=== PATIENT | female | born 1950 | race Caucasian/White ===

== ENCOUNTER 2019-12-16 11:34 | Day surgery (SDC) | payer MEDICARE, OTHER ==
[~2019-12-16 11:34] MED LIST: Lactated Ringers 1,000 ML IV SCH; Sodium Chloride 0.9% 10 ML Syringe FLUSH PRN
[2019-12-16] MEDS ORDERED: Propofol 200 MG/20 ML SDV ONE (12:22)
[2019-12-16] MEDS ORDERED: Midazolam 1 MG/ML 2 ML SDV ONE (12:22)
--- NOTE | 2019-12-16 12:46 | PCM.PN ---
- General Info Date of Service: 12/16/19 - Review of Systems Systems Review Comment:: 69-year-old female with known history of colon polyps here for surveillance colonoscopy. She denies any significant recent change in bowel pattern. Her last colonoscopy was over 5 years ago. Patient also states that her father required surgery for colon cancer at an advanced age. She is medically stable to proceed today. Her recent history and physical is reviewed and no significant changes are noted. I have discussed the proposed colonoscopy with the patient. Risks and possible complications such as but not limited to bleeding and GI injury reviewed. She agrees to proceed. - Patient Data Vitals - Most Recent: Last Vital Signs Temp 98.1 F 12/16/19 11:30 Pulse 86 12/16/19 11:30 Resp 16 12/16/19 11:30 BP 156/73 H 12/16/19 11:30 Pulse Ox 97 12/16/19 11:30 Weight - Most Recent: 61.235 kg Med Orders - Current: Current Medications Lactated Ringer's (Ringers, Lactated) 1,000 mls @ 50 mls/hr IV ASDIRECTED [facility] Last Admin: 12/16/19 12:05 Dose: 50 mls/hr Sodium Chloride (Saline Flush) 10 ml FLUSH Q8HR PRN PRN Reason: keep vein open Sepsis Event Note - Focused Exam Vital Signs: Vital Signs Temp Pulse Resp BP Pulse Ox 12/16/19 11:30 98.1 F 86 16 156/73 H 97 Date Exam was Performed: 12/16/19 Time Exam was Performed: 12:44 - Problem List Review Problem List Initiated/Reviewed/Updated: Yes - My Orders Last 24 Hours: My Active Orders 12/15/19 14:49 Resuscitation Status Routine 12/16/19 11:30 Peripheral IV Care [RC] . DIRECTED Vital Signs [RC] PER UNIT ROUTINE Lactated Ringers [Ringers, Lactated] 1,000 ml IV ASDIRECTED Sodium Chloride 0.9% [Saline Flush] 10 ml FLUSH Q8HR PRN Peripheral IV Insertion Adult [OM.PC] Routine 12/16/19 12:00 Patient to Empty Bladder [RC] ASDIRECTED 12/16/19 12:45 Verify Patient Consent Obtain [RC] ASDIRECTED 12/16/19 Breakfast Nothing Per Oral Diet [DIET] - Assessment Assessment:: Personal history of colon polyps Family history of colon cancer - Plan Plan:: Colonoscopy
[2019-12-16] MEDS ORDERED: Propofol 200 MG/20 ML SDV IV ONE (13:22)
[2019-12-16] MEDS ORDERED: Midazolam 1 MG/ML 2 ML SDV IV ONE (13:22)
--- NOTE | 2019-12-16 13:58 | PCM.OPNOTE ---
- General Post-Op/Procedure Note Date of Surgery/Procedure: 12/16/19 Operative Procedure(s): Colonoscopy with polypectomy Findings: Small hepatic flexure polyp Mild left colon diverticulosis Moderate sized hemorrhoids Pre Op Diagnosis: History of colon polyps Post-Op Diagnosis: Colon Polyp. Left Colon Diverticulosis. Hemorrhoids Anesthesia Technique: MAC Primary Surgeon: Bryn Jim Pathology: Colon Polyp EBL in mLs: 0 Complications: None Condition: Good
--- NOTE | 2019-12-16 20:38 | OR ---
DATE OF SURGERY: 12/16/2019 SURGEON: Bryn Jim MD PREOPERATIVE DIAGNOSIS: History of colon polyps and family history of colon cancer. POSTOPERATIVE DIAGNOSIS: Colon polyp, left colon diverticulosis, hemorrhoids. OPERATION PERFORMED: Colonoscopy with polypectomy. INDICATIONS FOR SURGERY: A 69-year-old female who comes today for surveillance colonoscopy. She has a history of colon polyps. She also notes that her father has a history of colon cancer. FINDINGS: A single small polyp was noted on today's exam. This is at the hepatic flexure. It is 5 mm in size and sessile in configuration. The patient also has a mild degree of diverticulosis in the left colon with multiple scattered small diverticula. The remainder of the colon appears normal. The patient does have moderate-sized internal and external hemorrhoids. DESCRIPTION OF PROCEDURE: The patient was taken to the operating room. She was given intravenous sedation and with her in the left lateral decubitus position, digital rectal exam was performed showing no rectal masses. The Olympus colonoscope was inserted into the rectum. Retroflexed examination of the rectal canal was performed. The scope was then carefully advanced under direct visualization through the entire length of the colon until cecum is reached. Cecal acquisition is confirmed by noting the normal internal cecal anatomy including the appendiceal orifice and ileocecal valve. The light was also noted to transilluminate the abdominal wall in the right lower quadrant. After examining the cecum, the scope was slowly withdrawn sequentially re-examining the colonic segments. At the level of the hepatic flexure, the above-described polyp was identified. This was removed grossly in its entirety with multiple bites of the biopsy forceps. The examination was then continued and after the entire colon and rectum had been fully examined and with no sign of any complication, the scope was removed and the patient was taken from the operating room in satisfactory condition. ESTIMATED BLOOD LOSS: Zero. COMPLICATIONS: None. PROGNOSIS: Good. /[id number]/MODL
== END 2019-12-16 14:50 | disposition home or self-care (01) ==
LOC: KA.SDS 11:34
PROVIDERS: ATTEND Surgery
DX: Z12.11 Encounter for screening for malignant neoplasm of colon (principal); D12.3 Benign neoplasm of transverse colon; K57.30 Diverticulosis of large intestine without perforation or abscess without bleeding; K64.8 Other hemorrhoids; K64.4 Residual hemorrhoidal skin tags; I10 Essential (primary) hypertension; E78.5 Hyperlipidemia, unspecified; R05 Cough; E87.6 Hypokalemia; Z88.1 Allergy status to other antibiotic agents; Z88.8 Allergy status to other drugs, medicaments and biological substances; Z80.0 Family history of malignant neoplasm of digestive organs; Z86.018 Personal history of other benign neoplasm; Z79.899 Other long term (current) drug therapy; Z98.890 Other specified postprocedural states
CPT/HCPCS: 00811; 45380; 88305; J2250; J2704; J7120

== ENCOUNTER 2019-12-19 14:41 | Emergency (ER) | payer MEDICARE, OTHER ==
--- NOTE | 2019-12-19 15:07 | EDM.PDOC ---
ED HPI GENERAL MEDICAL PROBLEM - General Stated Complaint: SORE THROAT Time Seen by Provider: 12/19/19 14:46 Source of Information: Reports: Patient History Limitations: Reports: No Limitations - History of Present Illness INITIAL COMMENTS - FREE TEXT/NARRATIVE: Patient presents with sore throat that started abruptly today. Pain is on the left and radiates up to the left ear. It hurts to swallow. She denies fever, cough, sinus pressure, runny nose or sneezing. - Related Data Allergies Allergy/AdvReac Type Severity Reaction Status Date / Time amoxicillin Allergy Rash Verified 12/19/19 15:04 aspirin Allergy Rash Verified 12/19/19 15:04 azithromycin [From Zithromax] Allergy Rash Verified 12/19/19 15:04 levofloxacin [From Levaquin] Allergy Other Verified 12/19/19 15:04 oseltamivir [From Tamiflu] Allergy Rash Verified 12/19/19 15:04 Home Meds: Home Meds Glucosamine/D3/Boswellia Samra [Osteo Bi-Flex Tablet] 1 tab PO DAILY 12/15/19 [ History] Hydrocortisone Acetate 25 mg RC BID 12/15/19 [History] Krill Oil 500 mg PO DAILY 12/15/19 [History] Loratadine 10 mg PO DAILY 12/15/19 [History] Multivitamin [Daily Hubert] 1 tab PO DAILY 12/15/19 [History] Potassium Chloride 10 meq PO DAILY 12/15/19 [History] Vitamin B Complex 1 cap PO DAILY 12/15/19 [History] hydroCHLOROthiazide [Hydrochlorothiazide] 12.5 mg PO DAILY 12/15/19 [History] Naproxen Sodium [Aleve] 220 mg PO BID PRN 12/19/19 [History] Past Medical History HEENT History: Reports: None Cardiovascular History: Reports: Hypertension Gastrointestinal History: Reports: Colon Polyp, Hemorrhoids Genitourinary History: Reports: UTI, 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: Fibroids, Musculoskeletal History: Reports: None Endocrine/Metabolic History: Reports: None Hematologic History: Reports: Anesthesia Reaction - Infectious Disease History Infectious Disease History: Reports: Influenza - Past Surgical History HEENT Surgical History: Reports: Naso-Sinus Surgery, Tonsillectomy Cardiovascular Surgical History: Reports: None GI Surgical History: Reports: Colonoscopy, Polypectomy Female Surgical History: Reports: Hysterectomy Musculoskeletal Surgical History: Reports: Knee Replacement Social & Family History - Tobacco Use Smoking Status *Q: Never Smoker Second Hand Smoke Exposure: No - Caffeine Use Caffeine Use: Reports: Coffee, Soda - Alcohol Use Days Per Week of Alcohol Use: 3 Number of Drinks Per Day: 1 Total Drinks Per Week: 3 - Recreational Drug Use Recreational Drug Use: No ED ROS ENT - Review of Systems Review Of Systems: See Below Constitutional: Denies: Fever, Chills, Malaise, Weakness HEENT: Denies: Ear Discharge, Sinus Problem, Throat Pain, Throat Swelling, Vision Change Respiratory: Denies: Shortness of Breath, Cough Cardiovascular: Denies: Chest Pain, Lightheadedness, Syncope GI/Abdominal: Denies: Abdominal Pain, Constipation, Diarrhea, Vomiting : Denies: Dysuria, Flank Pain Musculoskeletal: Reports: No Symptoms Skin: Reports: No Symptoms Neurological: Reports: No Symptoms Psychiatric: Denies: Confusion ED EXAM, ENT - Physical Exam Exam: See Below Exam Limited By: No Limitations General Appearance: Alert, WD/WN, No Apparent Distress Eye Exam: Bilateral Eye: EOMI, Normal Inspection, PERRL Ears: Normal External Exam, Normal Canal, Hearing Grossly Normal, Normal TMs. No: Auricular Erythema, Auricular Ecchymosis, Auricular Tenderness, Mastoid Swelling, Mastoid Tenderness, Canal Blood, Canal Swelling Nose: Normal Inspection, No Blood Mouth/Throat: Pharyngeal Erythema (left posterior pharynx there is mild erythema and very subtle swelling; airway is very open and patent). No: Tonsillar Erythema, Tonsillar Swelling, Trismus, Uvular Deviation, Uvular Edema Head: Atraumatic, Normocephalic Neck: Full Range of Motion, Lymphadenopathy (L) (tender to palpation) Respiratory/Chest: No Respiratory Distress, Lungs Clear, Normal Breath Sounds, No Accessory Muscle Use Cardiovascular: Regular Rate, Rhythm, No Murmur GI/Abdominal: Normal Bowel Sounds, Soft, Non-Tender, No Organomegaly, No Distention Back: Normal Inspection, Full Range of Motion. No: CVA Tenderness (L), CVA Tenderness (R) Extremities: Normal Inspection, Normal Range of Motion Neurological: Alert, Oriented, Normal Cognition, No Motor/Sensory Deficits Psychiatric: Normal Affect, Normal Mood Skin: Warm, Dry, Intact, Normal Color, No Rash Course - Vital Signs Last Recorded V/S: Last Vital Signs Temp 97.7 F 12/19/19 14:53 Pulse 77 12/19/19 14:53 Resp 20 12/19/19 14:53 BP 168/76 H 12/19/19 14:53 Pulse Ox 96 12/19/19 14:50 - Orders/Labs/Meds Orders: Active Orders 24 hr Category Date Time Status CULTURE STREP A CONFIRMATION [RM] Stat Lab 12/19/19 14:45 Results STREP SCRN A RAPID W CULT CONF [RM] Stat Lab 12/19/19 14:52 Ordered - Re-Assessments/Exams Free Text/Narrative Re-Assessment/Exam: 12/19/19 15:24 Rapid strep is negative. I discussed with patient that I saw a very mild swelling of left pharynx that could be a small abscess developing. Our CT scanner is not working today so we can't evaluate it further right now but it is more of a rule out than rule in at this point. Will treat empirically with Cefdinir and she will follow up on Sunday for recheck or return to ER if worsening over the weekend. Pt agrees with this plan and is discharged to home in stable condition. Departure - Departure Time of Disposition: 15:21 Disposition: Home, Self-Care 01 Condition: Good Clinical Impression: Pharyngeal abscess Pharyngitis Qualifiers: Pharyngitis/tonsillitis etiology: unspecified etiology Qualified Code(s): J02.9 - Acute pharyngitis, unspecified - Discharge Information Instructions: Pharyngitis, [id number] Referrals: Carrol Feldman PA-C [Primary Care Provider] - Additional Instructions: 1. Drink 8 cups of water daily. 2. Take the Cefdinir as directed. 3. Follow up with your PCP on Sunday. 4. Recheck in ER sooner if worsening before Sunday. 5. You can use Tylenol, Ibuprofen or sore throat sprays or lozenges as needed for throat pain. Sepsis Event Note - Evaluation Sepsis Screening Result: No Definite Risk - Focused Exam Vital Signs: Vital Signs Temp Pulse Resp BP Pulse Ox 12/19/19 14:53 97.7 F 77 20 168/76 H 12/19/19 14:50 97.9 F 75 20 154/91 H 96 Date Exam was Performed: 12/19/19 Time Exam was Performed: 15:28 - My Orders Last 24 Hours: My Active Orders 12/19/19 14:45 CULTURE STREP A CONFIRMATION [RM] Stat 12/19/19 14:52 STREP SCRN A RAPID W CULT CONF [] Stat - Assessment/Plan Last 24 Hours: My Active Orders 12/19/19 14:45 CULTURE STREP A CONFIRMATION [RM] Stat 12/19/19 14:52 STREP SCRN A RAPID W CULT CONF [] Stat
== END 2019-12-19 15:37 | disposition home or self-care (01) ==
LOC: KA.ED 14:41
DX: J39.1 Other abscess of pharynx (principal); I10 Essential (primary) hypertension; Z79.899 Other long term (current) drug therapy
CPT/HCPCS: 87081; 87430; 99283

== ENCOUNTER 2025-02-10 11:02 | Day surgery (SDC) | payer MEDICARE, OTHER ==
[2025-02-10] MEDS ORDERED: Propofol 200 MG/20 ML SDV IV ONE (11:03)
[2025-02-10] MEDS: Lactated Ringers 1,000 ML IV SCH (11:23)
[2025-02-10] MEDS: Sodium Chloride 0.9% 10 ML Syringe FLUSH PRN (11:23)
[2025-02-10] MEDS ORDERED: Propofol 200 MG/20 ML SDV ONE ×2 (11:29→11:30)
[2025-02-10] MEDS ORDERED: Midazolam 1 MG/ML 2 ML SDV ONE (11:29)
== END 2025-02-10 14:24 | disposition home or self-care (01) ==
LOC: KA.SDS 11:02
PROVIDERS: ATTEND Surgery
DX: D12.3 Benign neoplasm of transverse colon (principal); K57.30 Diverticulosis of large intestine without perforation or abscess without bleeding; K64.4 Residual hemorrhoidal skin tags; K64.8 Other hemorrhoids; Z86.0100 Personal history of colon polyps, unspecified; Z79.899 Other long term (current) drug therapy
CPT/HCPCS: J2250; J2704; J7120